=== PATIENT | male | born 1980 | race Caucasian/White ===

== ENCOUNTER 2016-08-26 02:11 | Inpatient (IN) | payer OTHER ==
[2016-08-26] VITALS (12 sets, daily range): BP systolic 86–146; BP diastolic 54–84
[~2016-08-26] VITALS: Ht 182.9 cm; Wt 96.5 kg
[~2016-08-26 02:11] MED LIST: ADVIL PM1 TABLET PO; APRESOLINE20 MG/ML IV; APRESOLINE50 MG PO; AUGMENTIN875 MG PO; AVELOX400 MG PO; Aspirin E.C. PO; BUMEX1 MG PO; Bentyl PO; CIPRO500 MG PO; CLEOCIN300 MG PO; CLONIDINE HCL0.1 MG PO; CYMBALTA20 MG PO; CYMBALTA60 MG PO; Cymbalta PO; DIFLUCAN100 MG PO; DILAUDID1 MG/ML IV; DIOVAN HCT 31 TABLET PO; EFFEXOR XR75 MG PO; EFFEXOR75 MG PO; ERGOCALCIF50000 UNIT PO; FLAGYL500 MG PO; HEPARIN SO5000 UNITS SC; HUMULIN 70100 UNIT/1 SC; Humalog SQ; INSULIN; INSULIN NOVOLOG; KEFLEX500 MG PO; Keflex PO; LEVAQUIN500 MG PO; LOSARTAN-HCTZ1 EAC1 PO; Levaquin PO; MAG-AL PLUS SUS30 ML PO; METFORMIN; METOCLOPRAM5 MG/1 M1 IV; NEXIUM40 MG PO; NOVOLIN,HU100 UNITS/ SC; NOVOLOG MI100 UNIT/3 SQ; NOVOLOG MI100 UNIT/4 SC; NOVOLOG MI100 UNIT/M PO; NOVOLOG PE100 UNITS/ SC; NovoLIN,Humulin 70/3 SC; OMEPRAZOLE20 M2 PO; OMEPRAZOLE20 MG PO; ONDANSETRON4 MG/2 ML IV; OXYCODONE HCL10 MG PO; OXYCODONE HCL15 MG PO; OXYCODONE HCL5 MG PO; PANTOPRAZOLE SO40 MG PO; PERCOCET 10-321 EACH PO; PERCOCET 10/1 TABLET; PERCOCET 5/31 TABLET PO; PRAVASTATIN SOD20 MG PO; PRILOSEC20 MG PO; PRISTIQ50 MG PO; PROTONIX40 MG PO; Phenergan PO; SARAFEM20 MG PO; SMZ PO; TORSEMIDE100 MG PO; TYLENOL REGULA325 MG PO; Tylenol PR; ULTRAM50 MG PO; VALSARTAN-HCTZ1 EAC4 PO; VENLAFAXINE HCL75 MG PO; ZOFRAN4 MG PO; oxyCODONE PO
[2016-08-26 03:09] LABS: CARBON DIOXIDE (BICARBONATE) 27.1 MEQ/L (20-31); MCH 28.9 PG (29.0-34.0); MCHC 31.9 G/DL (30.0-36.0); MCV 90.6 FL (86-99); MEAN PLAT.VOLUME 10.8 uM^3 (9.0-12.4); PLATELET COUNT 272 K/uL (156-360); RBC DIS.WIDTH-SD 42.4 % (39-53); RED BLOOD COUNT 2.98 M/uL (4.00-5.50); WHITE BLOOD COUNT 8.5 K/uL (4.1-10.2)
[2016-08-26 03:20] LABS: CHLORIDE 87 mEq/L (99-109); POTASSIUM 3.8 mEq/L (3.7-5.4); SODIUM 120 mEq/L (136-147)
[2016-08-26 03:23] LABS: ANION GAP 11 MEQ/L (2-14)
[2016-08-26 03:24] LABS: TOTAL BILIRUBIN 0.2 mg/dL (0.0-1.0)
[2016-08-26 03:25] LABS: ALKALINE PHOSPHATASE 273 IU/L (3-129)
[2016-08-26 03:26] LABS: GFR ESTIMATE (CALCULATED) 25 mL/min/
[2016-08-26 03:27] LABS: UREA NITROGEN (BUN) 24 mg/dL (9-23)
[2016-08-26 03:36] LABS: GLUCOSE 986 mg/dL (70-99)
[2016-08-26 03:43] LABS: LIPASE < 1 U/L (1.0-51.0)
[2016-08-26 05:09] LABS: ADD MIUA? YES; BILIRUBIN NEGATIVE; BLOOD SMALL; COLOR COLORLESS ((YELLOW)); GLUCOSE (STRIP) >=500; KETONES NEGATIVE; LEUKOCYTES NEGATIVE; NITRITE NEGATIVE; PROTEIN (STRIP) 30; SPECIFIC GRAVITY 1.013 (1.000-1.030); UROBILINOGEN 0.2 MG/DL (0.2-1.0)
[2016-08-26 05:11] LABS: BACTERIA NONE SEEN /HPF; EPITHELIAL CELLS NONE SEEN /HPF; MUCUS NONE SEEN /LPF; RED BLOOD CELLS 0-5 /HPF (0-5); UCUL ADDED? NO; WHITE BLOOD CELLS 0-5 /HPF (0-5)
[2016-08-26 05:20] LABS: AMPHETAMINE NEGATIVE (500 ng/mL); BARBITURATES NEGATIVE (200 ng/mL); BENZODIAZEPINES NEGATIVE (150 ng/mL); COCAINE NEGATIVE (150 ng/mL); INTERNAL CONTROLS VALID? YES; METHADONE NEGATIVE (200 ng/mL); METHAMPHETAMINE NEGATIVE (500 ng/mL); OPIATES (MORPHINE) NEGATIVE (100 ng/mL); OXYCODONE NEGATIVE (100 ng/mL); PHENCYCLIDINE NEGATIVE (25 ng/mL); PROPOXYPHENE NEGATIVE (300 ng/mL); THC CANNABINOIDS PRESUMPTIVE POSITIVE (50 ng/mL); TRICYCLIC ANTIDEPRESSANTS NEGATIVE (300 ng/mL)
[2016-08-26 05:21] LABS: ADD MEDTOX COMMENT Y
[2016-08-26 07:01] LABS: POINT-OF-CARE METER ID UU14100415
[2016-08-26 07:06] LABS: Estimated Average Glucose 418 mg/dL (70-123)
[2016-08-26 07:12] LABS: HEMOGLOBIN A1c (GLYCOHEMOGLOB) 16.2 % HGB (Below 5.7)
[2016-08-26 07:31] LABS: POINT-OF-CARE METER ID UU14100415
[2016-08-26 07:31] LABS: POINT-OF-CARE METER ID UU14100415
[2016-08-26 07:39] LABS: POINT-OF-CARE METER ID UU14100415
[2016-08-26 08:02] LABS: POINT-OF-CARE METER ID UU14100415
[2016-08-26 09:07] LABS: ANION GAP 10 MEQ/L (2-14); CHLORIDE 96 MEQ/L (99-109); POTASSIUM 3.1 MEQ/L (3.7-5.4); SAMPLE HEMOLYSIS CHECK 0; SAMPLE ICTERIC CHECK 0; SAMPLE LIPEMIA CHECK 0
[2016-08-26 09:07] LABS: POINT-OF-CARE METER ID UU14100415
[2016-08-26 09:13] LABS: UREA NITROGEN (BUN) 24 mg/dL (9-23)
[2016-08-26 09:22] LABS: GFR ESTIMATE (CALCULATED) 36 mL/min/; GLUCOSE 152 mg/dL (70-99); SODIUM 131 MEQ/L (136-147)
[2016-08-26 10:07] LABS: POINT-OF-CARE METER ID UU14100415
[2016-08-26 11:10] LABS: POINT-OF-CARE METER ID UU14100415
[2016-08-26] MEDS ORDERED: BACTRIM,SEPT1 TABLET PO (12:06)
[2016-08-26 12:49] LABS: POTASSIUM 3.5 mEq/L (3.7-5.4); SODIUM 130 mEq/L (136-147)
[2016-08-26 12:50] LABS: CHLORIDE 99 mEq/L (99-109)
[2016-08-26 12:51] LABS: GLUCOSE 150 mg/dL (70-99)
[2016-08-26 12:53] LABS: ANION GAP 8 MEQ/L (2-14)
[2016-08-26 12:55] LABS: GFR ESTIMATE (CALCULATED) 36 mL/min/
[2016-08-26 12:56] LABS: UREA NITROGEN (BUN) 25 mg/dL (9-23)
[2016-08-26 12:59] LABS: POINT-OF-CARE METER ID UU14100415
[2016-08-26 13:12] LABS: HIV INDEX 0.11; HIV-1/2 AB/AG COMBO Nonreactive
[2016-08-26 15:07] LABS: METH RESISTANT S AUREUS PCR NEGATIVE (NEGATIVE)
[2016-08-26 15:29] LABS: PROBE CHECK PASS; SPECIMEN PROCESSING CONTROL PASS
[2016-08-26 16:06] LABS: POINT-OF-CARE METER ID UU13113731
[2016-08-26 16:22] LABS: ANION GAP 8 MEQ/L (2-14); CHLORIDE 97 MEQ/L (99-109); GFR ESTIMATE (CALCULATED) 40 mL/min/; GLUCOSE 222 mg/dL (70-99); POTASSIUM 3.4 MEQ/L (3.7-5.4); SAMPLE HEMOLYSIS CHECK 0; SAMPLE ICTERIC CHECK 0; SAMPLE LIPEMIA CHECK 0; SODIUM 129 MEQ/L (136-147); UREA NITROGEN (BUN) 24 mg/dL (9-23)
[2016-08-26 20:32] LABS: ANION GAP 7 MEQ/L (2-14); CHLORIDE 97 MEQ/L (99-109); POTASSIUM 3.9 MEQ/L (3.7-5.4); SAMPLE HEMOLYSIS CHECK 0; SAMPLE ICTERIC CHECK 0; SAMPLE LIPEMIA CHECK 0; SODIUM 129 MEQ/L (136-147)
[2016-08-26 20:38] LABS: GFR ESTIMATE (CALCULATED) 40 mL/min/; GLUCOSE 273 mg/dL (70-99); UREA NITROGEN (BUN) 25 mg/dL (9-23)
[2016-08-26 22:39] LABS: POINT-OF-CARE METER ID UU13113731
[2016-08-27] VITALS (18 sets, daily range): BP systolic 100–129; BP diastolic 56–82
[2016-08-27 06:18] LABS: ANION GAP 9 MEQ/L (2-14); CHLORIDE 101 MEQ/L (99-109); GFR ESTIMATE (CALCULATED) 40 mL/min/; GLUCOSE 187 mg/dL (70-99); POTASSIUM 3.9 MEQ/L (3.7-5.4); SAMPLE HEMOLYSIS CHECK 0; SAMPLE ICTERIC CHECK 0; SAMPLE LIPEMIA CHECK 0; SODIUM 132 MEQ/L (136-147); UREA NITROGEN (BUN) 23 mg/dL (9-23)
[2016-08-27 06:23] LABS: HEMATOCRIT 24.3 % (38.0-50.0); MCH 29.1 PG (29.0-34.0); MCHC 34.2 G/DL (30.0-36.0); MEAN PLAT.VOLUME 10.7 uM^3 (9.0-12.4); PLATELET COUNT 258 K/uL (156-360); RBC DIS.WIDTH-SD 40.4 % (39-53); RED BLOOD COUNT 2.85 M/uL (4.00-5.50)
[2016-08-27 06:27] LABS: MCV 85.3 FL (86-99)
[2016-08-27 06:28] LABS: POINT-OF-CARE METER ID UU14149397
[2016-08-27 11:35] LABS: POINT-OF-CARE METER ID UU14149397
[2016-08-27 16:39] LABS: POINT-OF-CARE METER ID UU14188577
[2016-08-27 21:24] LABS: POINT-OF-CARE METER ID UU14149397
[2016-08-28] VITALS (7 sets, daily range): BP systolic 110–170; BP diastolic 60–91
[2016-08-28 06:24] LABS: ALKALINE PHOSPHATASE 533 IU/L (3-129); ANION GAP 8 MEQ/L (2-14); CHLORIDE 103 MEQ/L (99-109); GFR ESTIMATE (CALCULATED) 43 mL/min/; GLUCOSE 147 mg/dL (70-99); POTASSIUM 4.3 MEQ/L (3.7-5.4); SAMPLE HEMOLYSIS CHECK 0; SAMPLE ICTERIC CHECK 0; SAMPLE LIPEMIA CHECK 0; SODIUM 137 MEQ/L (136-147); UREA NITROGEN (BUN) 25 mg/dL (9-23)
[2016-08-28 06:26] LABS: HEMATOCRIT 30.8 % (38.0-50.0); MCH 29.5 PG (29.0-34.0); MCHC 34.7 G/DL (30.0-36.0); MCV 84.8 FL (86-99); MEAN PLAT.VOLUME 10.5 uM^3 (9.0-12.4); PLATELET COUNT 268 K/uL (156-360); RBC DIS.WIDTH-CV 13.6 % (11.8-14.6); RBC DIS.WIDTH-SD 42.5 % (39-53)
[2016-08-28 06:46] LABS: RED BLOOD COUNT 3.63 M/uL (4.00-5.50)
[2016-08-28 07:41] LABS: POINT-OF-CARE METER ID UU14149397
[2016-08-28 08:35] LABS: AMYLASE 24 IU/L (1-118)
[2016-08-28 08:56] LABS: LIPASE < 3.0 U/L (1.0-51.0)
[2016-08-29 04:30] VITALS: BP 114/66
[2016-08-29 05:52] LABS: HEMATOCRIT 32.6 % (38.0-50.0); MCH 29.2 PG (29.0-34.0); MCHC 33.7 G/DL (30.0-36.0); MCV 86.5 FL (86-99); MEAN PLAT.VOLUME 10.2 uM^3 (9.0-12.4); PLATELET COUNT 301 K/uL (156-360); RBC DIS.WIDTH-CV 13.6 % (11.8-14.6); RBC DIS.WIDTH-SD 42.9 % (39-53); RED BLOOD COUNT 3.77 M/uL (4.00-5.50)
[2016-08-29 05:53] LABS: WHITE BLOOD COUNT 8.8 K/uL (4.1-10.2)
[2016-08-29 06:18] LABS: ALKALINE PHOSPHATASE 575 IU/L (3-129); ANION GAP 9 MEQ/L (2-14); CHLORIDE 98 MEQ/L (99-109); GFR ESTIMATE (CALCULATED) 46 mL/min/; GLUCOSE 195 mg/dL (70-99); POTASSIUM 4.2 MEQ/L (3.7-5.4); SAMPLE HEMOLYSIS CHECK 0; SAMPLE ICTERIC CHECK 0; SAMPLE LIPEMIA CHECK 0; SODIUM 136 MEQ/L (136-147); TOTAL BILIRUBIN 0.9 MG/DL (0.0-1.0); UREA NITROGEN (BUN) 24 mg/dL (9-23)
[2016-08-29 06:31] LABS: POINT-OF-CARE METER ID UU14149397
[2016-08-29 09:32] LABS: LIPASE < 3.0 U/L (1.0-51.0)
[2016-08-29 09:37] VITALS: BP 130/78
[2016-08-29 09:38] LABS: AMYLASE 42 IU/L (1-118)
[2016-08-29 12:24] VITALS: BP 115/68
[2016-08-29 16:06] VITALS: BP 121/74
[2016-08-29 19:46] VITALS: BP 124/80
[2016-08-29 23:52] VITALS: BP 117/72
[2016-08-30 03:54] VITALS: BP 127/82
[2016-08-30 06:56] LABS: POINT-OF-CARE METER ID UU14188577
[2016-08-30 07:41] VITALS: BP 103/57
[2016-08-30 11:34] VITALS: BP 113/63
[2016-08-30 15:51] VITALS: BP 125/65
[2016-08-30 19:33] VITALS: BP 134/85
[2016-08-31] VITALS (7 sets, daily range): BP systolic 104–119; BP diastolic 59–74
[2016-08-31 06:37] LABS: POINT-OF-CARE METER ID UU14188577
[2016-08-31 11:54] LABS: POINT-OF-CARE METER ID UU14149397
[2016-09-01 03:59] VITALS: BP 102/62
[2016-09-01 06:11] LABS: POINT-OF-CARE METER ID UU14149397; POINT-OF-CARE USER ID STWHLR41
[2016-09-01 08:00] VITALS: BP 118/60
[2016-09-01] MEDS ORDERED: VALSARTAN160 MG PO (10:51)
[2016-09-01 11:47] VITALS: BP 119/78
[2016-09-01 12:02] LABS: POINT-OF-CARE METER ID UU14188577
== END 2016-09-01 13:40 | disposition home or self-care (01) | DRG 638 ==
LOC: EME → EDBD 02:11 → 3EAST 11:44 → 4WEST 11:44 → EDOF 11:44 → 4WEST 12:30 → 3EAST 08-27 02:12
PROVIDERS: Emergency Medicine; Internal Medicine; Internal Medicine Critical Care Medicine
DX: E10.10 Type 1 diabetes mellitus with ketoacidosis without coma (principal); K86.1 Other chronic pancreatitis; K21.9 Gastro-esophageal reflux disease without esophagitis; N18.3 Chronic kidney disease, stage 3 (moderate); F32.9 Major depressive disorder, single episode, unspecified; I12.9 Hypertensive chronic kidney disease with stage 1 through stage 4 chronic kidney disease, or unspecified chronic kidney disease; G89.29 Other chronic pain; F17.200 Nicotine dependence, unspecified, uncomplicated; Z79.4 Long term (current) use of insulin; W19.XXXA Unspecified fall, initial encounter; R20.2 Paresthesia of skin; R26.2 Difficulty in walking, not elsewhere classified; D32.9 Benign neoplasm of meninges, unspecified; D63.1 Anemia in chronic kidney disease; E10.40 Type 1 diabetes mellitus with diabetic neuropathy, unspecified; R79.89 Other specified abnormal findings of blood chemistry; E10.22 Type 1 diabetes mellitus with diabetic chronic kidney disease; Y99.9 Unspecified external cause status
CPT/HCPCS: 70450; 71020; 72125; 72131; 73560; 74150; 80048; 80048 91; 80053; 81003; 82010; 82150; 82803; 82948; 83036; 83690; 83930; 84100; 84999; 85027; 86703; 86850; 86900; 86901; 86920; 87641; 99281; 99285; J1815; J1940; J2405; J7030; J7050; P9016

== ENCOUNTER 2016-11-08 02:49 | Inpatient (IN) | payer OTHER ==
[~2016-11-08] VITALS: Ht 193 cm; Wt 110.0 kg
[2016-11-08] VITALS (10 sets, daily range): BP systolic 11–122; BP diastolic 68–85
[~2016-11-08 02:49] MED LIST changes: +BACTRIM,SEPT1 TABLET PO; +VALSARTAN160 MG PO
[2016-11-08 03:47] LABS: HEMATOCRIT 24.4 % (38.0-50.0); MCH 30.1 PG (29.0-34.0); MCHC 34.4 G/DL (30.0-36.0); MCV 87.5 FL (86-99); MEAN PLAT.VOLUME 9.6 uM^3 (9.0-12.4); PLATELET COUNT 202 K/uL (156-360); RBC DIS.WIDTH-CV 13.7 % (11.8-14.6); RBC DIS.WIDTH-SD 44.2 % (39-53); RED BLOOD COUNT 2.79 M/uL (4.00-5.50); WHITE BLOOD COUNT 13.6 K/uL (4.1-10.2)
[2016-11-08 03:49] LABS: CARBON DIOXIDE (BICARBONATE) 20.9 MEQ/L (20-31)
[2016-11-08 03:58] LABS: CHLORIDE 102 mEq/L (99-109); POTASSIUM 3.7 mEq/L (3.7-5.4); SODIUM 130 mEq/L (136-147)
[2016-11-08 04:00] LABS: GLUCOSE 301 mg/dL (70-99)
[2016-11-08 04:01] LABS: ANION GAP 9 MEQ/L (2-14)
[2016-11-08 04:02] LABS: TOTAL BILIRUBIN 0.7 mg/dL (0.0-1.0)
[2016-11-08 04:04] LABS: ALKALINE PHOSPHATASE 208 IU/L (3-129); GFR ESTIMATE (CALCULATED) 36 mL/min/
[2016-11-08 04:04] LABS: ADD MIUA? YES; BILIRUBIN NEGATIVE; BLOOD LARGE; COLOR AMBER ((YELLOW)); GLUCOSE (STRIP) 50; KETONES NEGATIVE; LEUKOCYTES LARGE; NITRITE NEGATIVE; PROTEIN (STRIP) >=500; SPECIFIC GRAVITY 1.013 (1.000-1.030); UROBILINOGEN 0.2 MG/DL (0.2-1.0)
[2016-11-08 04:05] LABS: UREA NITROGEN (BUN) 24 mg/dL (9-23)
[2016-11-08 04:13] LABS: LIPASE < 1.0 U/L (1.0-51.0)
[2016-11-08 04:41] LABS: BACTERIA 3+ /HPF; EPITHELIAL CELLS 2+ /HPF; MUCUS 2+ /LPF; RED BLOOD CELLS TNTC /HPF (0-5); UCUL ADDED? YES; WHITE BLOOD CELLS TNTC /HPF (0-5)
[2016-11-08 04:42] LABS: HYALINE CASTS 0-5 /LPF
[2016-11-08 07:54] LABS: POINT-OF-CARE METER ID UU14149397
[2016-11-08 22:04] LABS: POINT-OF-CARE METER ID UU14149397
[2016-11-09] VITALS (15 sets, daily range): BP systolic 106–132; BP diastolic 69–92
[2016-11-09 06:15] LABS: HEMATOCRIT 23.3 % (38.0-50.0); MCH 31.1 PG (29.0-34.0); MCHC 35.2 G/DL (30.0-36.0); MCV 88.3 FL (86-99); MEAN PLAT.VOLUME 10.6 uM^3 (9.0-12.4); PLATELET COUNT 158 K/uL (156-360); RBC DIS.WIDTH-CV 14.1 % (11.8-14.6); RBC DIS.WIDTH-SD 45.9 % (39-53); RED BLOOD COUNT 2.64 M/uL (4.00-5.50); WHITE BLOOD COUNT 11.6 K/uL (4.1-10.2)
[2016-11-09 06:38] LABS: ALKALINE PHOSPHATASE 184 IU/L (3-129); ANION GAP 10 MEQ/L (2-14); CHLORIDE 101 MEQ/L (99-109); GFR ESTIMATE (CALCULATED) 29 mL/min/; POTASSIUM 4.1 MEQ/L (3.7-5.4); SAMPLE HEMOLYSIS CHECK 0; SAMPLE ICTERIC CHECK 0; SAMPLE LIPEMIA CHECK 0; SODIUM 129 MEQ/L (136-147); TOTAL BILIRUBIN 0.5 MG/DL (0.0-1.0)
[2016-11-09 06:51] LABS: GLUCOSE 134 mg/dL (70-99); UREA NITROGEN (BUN) 37 mg/dL (9-23)
[2016-11-09 07:08] LABS: POINT-OF-CARE METER ID UU14149397
[2016-11-09] MEDS ORDERED: NOVOLOG MI100 UNIT/4 SC ×2 (14:10→14:11)
[2016-11-09] MEDS ORDERED: LYRICA150 MG PO (14:11)
[2016-11-09] MEDS ORDERED: DIOVAN HCT 31 TABLET PO (14:12)
[2016-11-09 16:30] LABS: POINT-OF-CARE METER ID UU14149397
[2016-11-09 21:23] LABS: POINT-OF-CARE METER ID UU14149397
[2016-11-10 04:39] VITALS: BP 128/77
[2016-11-10 06:48] LABS: HEMATOCRIT 27.6 % (38.0-50.0); MCH 30.1 PG (29.0-34.0); MCHC 34.8 G/DL (30.0-36.0); MCV 86.5 FL (86-99); MEAN PLAT.VOLUME 10.5 uM^3 (9.0-12.4); PLATELET COUNT 169 K/uL (156-360); RBC DIS.WIDTH-CV 15.2 % (11.8-14.6); RBC DIS.WIDTH-SD 48.2 % (39-53); RED BLOOD COUNT 3.19 M/uL (4.00-5.50); WHITE BLOOD COUNT 6.1 K/uL (4.1-10.2)
[2016-11-10 07:32] LABS: ANION GAP 9 MEQ/L (2-14); CHLORIDE 104 MEQ/L (99-109); GFR ESTIMATE (CALCULATED) 31 mL/min/; POTASSIUM 4.3 MEQ/L (3.7-5.4); SAMPLE HEMOLYSIS CHECK 0; SAMPLE ICTERIC CHECK 0; SAMPLE LIPEMIA CHECK 0; SODIUM 132 MEQ/L (136-147); UREA NITROGEN (BUN) 44 mg/dL (9-23)
[2016-11-10 07:33] LABS: ALKALINE PHOSPHATASE 316 IU/L (3-129); GLUCOSE 84 mg/dL (70-99); TOTAL BILIRUBIN 0.9 MG/DL (0.0-1.0)
[2016-11-10 08:12] VITALS: BP 126/72
[2016-11-10 08:20] LABS: ANION GAP 10 MEQ/L (2-14); CHLORIDE 105 MEQ/L (99-109); FERRITIN 271 NG/ML (22-322); GFR ESTIMATE (CALCULATED) 31 mL/min/; IRON 94 MCG/DL (35-150); POTASSIUM 4.3 MEQ/L (3.7-5.4); SAMPLE HEMOLYSIS CHECK 0; SAMPLE ICTERIC CHECK 0; SAMPLE LIPEMIA CHECK 0; SODIUM 133 MEQ/L (136-147); UREA NITROGEN (BUN) 44 mg/dL (9-23)
[2016-11-10 08:22] LABS: GLUCOSE 85 mg/dL (70-99)
[2016-11-10 11:40] VITALS: BP 118/81
[2016-11-10 16:15] VITALS: BP 125/84
[2016-11-10 16:47] LABS: POINT-OF-CARE METER ID UU14149397
[2016-11-10 19:53] VITALS: BP 130/77
[2016-11-10 22:08] LABS: POINT-OF-CARE METER ID UU14149397
[2016-11-10 23:54] VITALS: BP 136/79
[2016-11-11 03:56] VITALS: BP 138/79
[2016-11-11 07:00] LABS: EOSINOPHIL (%) 1.8 % (0-5); EOSINOPHIL COUNT 0.1 K/uL (0-0.3); HEMATOCRIT 29.4 % (38.0-50.0); IMMATURE GRANULOCYTE (%) 0.4 % (0.0-0.7); INSTRUMENT ABS NEUTROPHIL CT 3.6 K/uL; LYMPHOCYTE COUNT 1.4 K/uL (1.0-2.8); MCH 29.7 PG (29.0-34.0); MCHC 33.7 G/DL (30.0-36.0); MCV 88.3 FL (86-99); MEAN PLAT.VOLUME 10.5 uM^3 (9.0-12.4); MONOCYTE COUNT 0.4 K/uL (0-0.8); NEUTROPHIL (%) 65.4 % (45-76); NEUTROPHIL COUNT 3.6 K/uL (1.8-6.4); PLATELET COUNT 175 K/uL (156-360); RBC DIS.WIDTH-CV 15.4 % (11.8-14.6); RBC DIS.WIDTH-SD 49.8 % (39-53); RED BLOOD COUNT 3.33 M/uL (4.00-5.50); WHITE BLOOD COUNT 5.4 K/uL (4.1-10.2)
[2016-11-11 07:22] LABS: ANION GAP 10 MEQ/L (2-14); CHLORIDE 105 MEQ/L (99-109); GFR ESTIMATE (CALCULATED) 33 mL/min/; POTASSIUM 4.2 MEQ/L (3.7-5.4); SAMPLE HEMOLYSIS CHECK 0; SAMPLE ICTERIC CHECK 0; SAMPLE LIPEMIA CHECK 0; SODIUM 132 MEQ/L (136-147); UREA NITROGEN (BUN) 38 mg/dL (9-23)
[2016-11-11 07:24] LABS: GLUCOSE 195 mg/dL (70-99)
[2016-11-11 07:32] VITALS: BP 124/84
[2016-11-11 08:48] LABS: ALKALINE PHOSPHATASE 402 IU/L (3-129); TOTAL BILIRUBIN 0.7 MG/DL (0.0-1.0)
[2016-11-11 11:16] LABS: POINT-OF-CARE METER ID UU14149397
[2016-11-11 11:40] VITALS: BP 123/86
[2016-11-11] MEDS ORDERED: LINEZOLID600 MG PO (14:31)
[2016-11-11] MEDS ORDERED: DUONEB 2.5-0.5 M3 ML AEROSOL (14:32)
== END 2016-11-11 17:19 | disposition home or self-care (01) | DRG 871 ==
LOC: EME → EDBD 02:49 → EME 02:49 → 3EAST 04:51 → EDOF 04:51 → 3EAST 07:07
PROVIDERS: Emergency Medicine; Internal Medicine; Internal Medicine Nephrology
PROC: 30233N1 Transfusion of Nonautologous Red Blood Cells into Peripheral Vein, Percutaneous Approach (ICD-10-PCS; principal; 2016-11-08)
DX: A41.9 Sepsis, unspecified organism (principal); J18.9 Pneumonia, unspecified organism; N39.0 Urinary tract infection, site not specified; N17.9 Acute kidney failure, unspecified; E10.65 Type 1 diabetes mellitus with hyperglycemia; F11.20 Opioid dependence, uncomplicated; N18.4 Chronic kidney disease, stage 4 (severe); E10.22 Type 1 diabetes mellitus with diabetic chronic kidney disease; D63.1 Anemia in chronic kidney disease; F70 Mild intellectual disabilities; F32.9 Major depressive disorder, single episode, unspecified; D32.9 Benign neoplasm of meninges, unspecified; E55.9 Vitamin D deficiency, unspecified; I12.9 Hypertensive chronic kidney disease with stage 1 through stage 4 chronic kidney disease, or unspecified chronic kidney disease; G89.4 Chronic pain syndrome; K86.1 Other chronic pancreatitis; E10.319 Type 1 diabetes mellitus with unspecified diabetic retinopathy without macular edema; E10.40 Type 1 diabetes mellitus with diabetic neuropathy, unspecified; E10.21 Type 1 diabetes mellitus with diabetic nephropathy; K21.9 Gastro-esophageal reflux disease without esophagitis; Z90.49 Acquired absence of other specified parts of digestive tract; Z79.4 Long term (current) use of insulin; Z87.891 Personal history of nicotine dependence
CPT/HCPCS: 70450; 71010; 71020; 80053; 80069; 81003; 82010; 82272; 82306; 82570; 82607; 82728; 82746; 82803; 82948; 83540; 83605; 83690; 84156; 84466; 84550; 85025; 85027; 86900; 86901; 86920; 87040; 87077; 87086; 87186; 87801; 94640; 94640 76; 94760; 99202; 99281; 99285; J0456; J0744; J1650; J1815; J1956; J2405; J7030; P9016

== ENCOUNTER 2016-11-17 06:26 | Emergency (ER) | payer OTHER ==
[~2016-11-17] VITALS: Ht 182.9 cm; Wt 97.0 kg
[~2016-11-17 06:26] MED LIST changes: +DUONEB 2.5-0.5 M3 ML AEROSOL; +LINEZOLID600 MG PO; +LYRICA150 MG PO
[2016-11-17 07:12] LABS: POINT-OF-CARE METER ID UU13113702
[2016-11-17 08:02] LABS: ADD MIUA? YES; BILIRUBIN NEGATIVE; BLOOD MODERATE; COLOR STRAW ((YELLOW)); GLUCOSE (STRIP) >=500; KETONES NEGATIVE; LEUKOCYTES SMALL; NITRITE NEGATIVE; PROTEIN (STRIP) 100; SPECIFIC GRAVITY 1.007 (1.000-1.030); UROBILINOGEN 0.2 MG/DL (0.2-1.0)
[2016-11-17 08:10] LABS: BACTERIA NONE SEEN /HPF; BUDDING YEAST 3+; EPITHELIAL CELLS RARE /HPF; HYALINE CASTS 0-5 /LPF; MUCUS TRACE /LPF; UCUL ADDED? NO
[2016-11-17 08:17] LABS: HEMATOCRIT 32.7 % (38.0-50.0); MCH 29.2 PG (29.0-34.0); MCHC 32.7 G/DL (30.0-36.0); MCV 89.3 FL (86-99); MEAN PLAT.VOLUME 9.4 uM^3 (9.0-12.4); RBC DIS.WIDTH-CV 14.7 % (11.8-14.6); RBC DIS.WIDTH-SD 47.8 % (39-53); RED BLOOD COUNT 3.66 M/uL (4.00-5.50); WHITE BLOOD COUNT 12.3 K/uL (4.1-10.2)
[2016-11-17 08:20] LABS: PLATELET COUNT 275 K/uL (156-360)
[2016-11-17 08:22] LABS: CHLORIDE 108 mEq/L (99-109); POTASSIUM 3.7 mEq/L (3.7-5.4); SODIUM 131 mEq/L (136-147)
[2016-11-17 08:23] LABS: GLUCOSE 280 mg/dL (70-99)
[2016-11-17 08:25] LABS: ANION GAP 5 MEQ/L (2-14)
[2016-11-17 08:27] LABS: GFR ESTIMATE (CALCULATED) > 59 mL/min/
[2016-11-17 08:28] LABS: UREA NITROGEN (BUN) 9 mg/dL (9-23)
[2016-11-17 09:34] LABS: ABS NEUTROPHIL COUNT 8.8; BAND NEUTROPHILS 0.9 % (0-8.0); BASOPHILS 1.8 %; BURR CELLS 1+; EOSINOPHIL ABS CT 0; INSTRUMENT ABS NEUTROPHIL CT 8.5 K/uL; LYMPHOCYTES 21.9 % (15.0-45.0); OVALOCYTES 1+; PLAT.SUFFICIENCY ADEQUATE; POIKILOCYTOSIS 1+
[2016-11-17 09:50] VITALS: BP 132/83
== END 2016-11-17 10:10 | disposition home or self-care (01) ==
LOC: EME → EDBD 06:26 → EME 10:10
PROVIDERS: Personal Emergency Response Attendant
DX: M54.9 Dorsalgia, unspecified (principal); E86.0 Dehydration; I12.9 Hypertensive chronic kidney disease with stage 1 through stage 4 chronic kidney disease, or unspecified chronic kidney disease; N18.9 Chronic kidney disease, unspecified; E11.65 Type 2 diabetes mellitus with hyperglycemia; K21.9 Gastro-esophageal reflux disease without esophagitis; Z87.440 Personal history of urinary (tract) infections; Z79.4 Long term (current) use of insulin; Z88.0 Allergy status to penicillin; Z88.2 Allergy status to sulfonamides; Z87.891 Personal history of nicotine dependence
CPT/HCPCS: 71020; 74176; 80048; 81003; 82948; 85025; 99281; 99284; J3010; J7030

== ENCOUNTER 2016-12-02 11:27 | Inpatient (IN) | payer OTHER ==
[~2016-12-02] VITALS: Ht 182.9 cm; Wt 109.2 kg
[2016-12-02 12:39] LABS: BASOPHIL COUNT 0.1 K/uL (0-0.1); EOSINOPHIL (%) 3.8 % (0-5); EOSINOPHIL COUNT 0.4 K/uL (0-0.3); HEMATOCRIT 27.7 % (38.0-50.0); IMMATURE GRANULOCYTE (%) 0.3 % (0.0-0.7); INSTRUMENT ABS NEUTROPHIL CT 7.2 K/uL; LYMPHOCYTE COUNT 2.1 K/uL (1.0-2.8); MCH 29.3 PG (29.0-34.0); MCHC 33.9 G/DL (30.0-36.0); MCV 86.3 FL (86-99); MEAN PLAT.VOLUME 9.6 uM^3 (9.0-12.4); MONOCYTE COUNT 0.7 K/uL (0-0.8); NEUTROPHIL (%) 68.5 % (45-76); NEUTROPHIL COUNT 7.2 K/uL (1.8-6.4); PLATELET COUNT 256 K/uL (156-360); RBC DIS.WIDTH-CV 14.3 % (11.8-14.6); RBC DIS.WIDTH-SD 44.6 % (39-53); RED BLOOD COUNT 3.21 M/uL (4.00-5.50); WHITE BLOOD COUNT 10.5 K/uL (4.1-10.2)
[2016-12-02 12:50] LABS: CHLORIDE 106 mEq/L (99-109); POTASSIUM 4.5 mEq/L (3.7-5.4); SODIUM 135 mEq/L (136-147)
[2016-12-02 12:51] LABS: GLUCOSE 187 mg/dL (70-99)
[2016-12-02 12:53] LABS: ANION GAP 7 MEQ/L (2-14)
[2016-12-02 12:55] LABS: GFR ESTIMATE (CALCULATED) > 59 mL/min/
[2016-12-02 12:56] LABS: UREA NITROGEN (BUN) 9 mg/dL (9-23)
[2016-12-02 13:20] LABS: ADD MIUA? YES; BILIRUBIN NEGATIVE; BLOOD MODERATE; COLOR YELLOW ((YELLOW)); GLUCOSE (STRIP) 50; KETONES NEGATIVE; LEUKOCYTES LARGE; NITRITE NEGATIVE; PROTEIN (STRIP) >=500; SPECIFIC GRAVITY 1.009 (1.000-1.030); UROBILINOGEN 0.2 MG/DL (0.2-1.0)
[2016-12-02 13:25] LABS: BACTERIA 3+ /HPF; BUDDING YEAST 4+; EPITHELIAL CELLS RARE /HPF; HYALINE CASTS 0-5 /LPF; MUCUS TRACE /LPF; RED BLOOD CELLS 40-50 /HPF (0-5); UCUL ADDED? YES; WHITE BLOOD CELLS TNTC /HPF (0-5); WHITE BLOOD CELLS CLUMP FEW /HPF (0-5)
[2016-12-02] MEDS ORDERED: VENLAFAXINE HCL75 MG PO (14:24)
[2016-12-02] MEDS ORDERED: VITAMIN D2000 UNI1 PO (14:25)
[2016-12-02 17:55] VITALS: BP 159/95
[2016-12-02 20:20] VITALS: BP 167/99
[2016-12-02 21:06] LABS: POINT-OF-CARE METER ID UU13113725
[2016-12-02 22:25] VITALS: BP 143/66
[2016-12-03 00:37] LABS: POINT-OF-CARE METER ID UU13113725
[2016-12-03 07:41] VITALS: BP 140/89
[2016-12-03 11:41] LABS: POINT-OF-CARE METER ID UU13113725
[2016-12-03 15:00] VITALS: BP 111/67
[2016-12-03 16:48] LABS: POINT-OF-CARE METER ID UU13113725
[2016-12-03 21:23] LABS: POINT-OF-CARE METER ID UU13113725
[2016-12-04 00:45] VITALS: BP 134/80
[2016-12-04 08:33] VITALS: BP 135/74
[2016-12-04 09:49] LABS: POINT-OF-CARE METER ID UU13113725
[2016-12-04 11:49] LABS: POINT-OF-CARE METER ID UU13113725
[2016-12-04 15:58] VITALS: BP 114/79
[2016-12-04 16:14] LABS: POINT-OF-CARE METER ID UU13113725
[2016-12-04 19:40] VITALS: BP 142/85
[2016-12-05 07:41] LABS: POINT-OF-CARE METER ID UU13113725
[2016-12-05 07:42] VITALS: BP 132/78
[2016-12-05 11:52] LABS: POINT-OF-CARE METER ID UU13113725
[2016-12-05 15:30] VITALS: BP 131/78
[2016-12-05 21:25] LABS: POINT-OF-CARE METER ID UU13113725
[2016-12-06 00:17] VITALS: BP 138/83
[2016-12-06 06:02] LABS: POINT-OF-CARE METER ID UU13113725
[2016-12-06 07:31] VITALS: BP 125/78
[2016-12-06 11:26] LABS: EOSINOPHIL (%) 5.5 % (0-5); EOSINOPHIL COUNT 0.7 K/uL (0-0.3); HEMATOCRIT 31.1 % (38.0-50.0); IMMATURE GRANULOCYTE (%) 0.5 % (0.0-0.7); IMMATURE GRANULOCYTE COUNT 0.1 K/uL; LYMPHOCYTE COUNT 1.7 K/uL (1.0-2.8); MCH 29.9 PG (29.0-34.0); MCHC 33.1 G/DL (30.0-36.0); MCV 90.1 FL (86-99); MEAN PLAT.VOLUME 9.3 uM^3 (9.0-12.4); MONOCYTE (%) 7.3 % (3-12); MONOCYTE COUNT 0.9 K/uL (0-0.8); RBC DIS.WIDTH-CV 15.5 % (11.8-14.6); RBC DIS.WIDTH-SD 50.2 % (39-53); RED BLOOD COUNT 3.45 M/uL (4.00-5.50); WHITE BLOOD COUNT 12.3 K/uL (4.1-10.2)
[2016-12-06 11:27] LABS: PLATELET COUNT 377 K/uL (156-360)
[2016-12-06 11:34] LABS: ANION GAP 8 MEQ/L (2-14); CHLORIDE 101 MEQ/L (99-109); POTASSIUM 5.2 MEQ/L (3.7-5.4); SAMPLE HEMOLYSIS CHECK 0; SAMPLE ICTERIC CHECK 0; SAMPLE LIPEMIA CHECK 0; SODIUM 129 MEQ/L (136-147); TOTAL BILIRUBIN 0.8 MG/DL (0.0-1.0)
[2016-12-06 11:43] LABS: ALKALINE PHOSPHATASE 673 IU/L (3-129); GFR ESTIMATE (CALCULATED) 24 mL/min/; GLUCOSE 75 mg/dL (70-99); UREA NITROGEN (BUN) 36 mg/dL (9-23)
[2016-12-06 15:00] VITALS: BP 141/84
[2016-12-06 17:28] LABS: POINT-OF-CARE METER ID UU13113725
[2016-12-06 23:37] VITALS: BP 142/89
[2016-12-07 05:58] LABS: BASOPHIL COUNT 0.1 K/uL (0-0.1); EOSINOPHIL (%) 5.1 % (0-5); EOSINOPHIL COUNT 0.6 K/uL (0-0.3); HEMATOCRIT 28.7 % (38.0-50.0); IMMATURE GRANULOCYTE (%) 0.5 % (0.0-0.7); IMMATURE GRANULOCYTE COUNT 0.1 K/uL; INSTRUMENT ABS NEUTROPHIL CT 7.7 K/uL; LYMPHOCYTE COUNT 1.5 K/uL (1.0-2.8); MCH 30.4 PG (29.0-34.0); MCHC 33.1 G/DL (30.0-36.0); MEAN PLAT.VOLUME 9.1 uM^3 (9.0-12.4); MONOCYTE (%) 8.9 % (3-12); NEUTROPHIL (%) 71.4 % (45-76); NEUTROPHIL COUNT 7.7 K/uL (1.8-6.4); PLATELET COUNT 327 K/uL (156-360); RBC DIS.WIDTH-CV 15.7 % (11.8-14.6); RBC DIS.WIDTH-SD 51.8 % (39-53); RED BLOOD COUNT 3.12 M/uL (4.00-5.50); WHITE BLOOD COUNT 10.8 K/uL (4.1-10.2)
[2016-12-07 06:09] LABS: POINT-OF-CARE METER ID UU13113725
[2016-12-07 06:23] LABS: ALKALINE PHOSPHATASE 562 IU/L (3-129); ANION GAP 7 MEQ/L (2-14); CHLORIDE 104 MEQ/L (99-109); DIRECT BILIRUBIN 0.1 mg/dL (0.0-0.3); GFR ESTIMATE (CALCULATED) 23 mL/min/; GLUCOSE 90 mg/dL (70-99); POTASSIUM 4.8 MEQ/L (3.7-5.4); SAMPLE HEMOLYSIS CHECK 0; SAMPLE ICTERIC CHECK 0; SAMPLE LIPEMIA CHECK 0; SODIUM 130 MEQ/L (136-147); UREA NITROGEN (BUN) 35 mg/dL (9-23)
[2016-12-07 06:24] LABS: TOTAL BILIRUBIN 0.4 MG/DL (0.0-1.0)
[2016-12-07 07:33] VITALS: BP 133/89
[2016-12-07 11:22] LABS: POINT-OF-CARE METER ID UU13113725
[2016-12-07 13:49] LABS: IRON 65 MCG/DL (35-150)
[2016-12-07 16:27] VITALS: BP 138/91
[2016-12-07 18:42] LABS: GLUCOSE 128 mg/dL (70-99)
[2016-12-07 22:32] LABS: POINT-OF-CARE METER ID UU13113725
[2016-12-07 22:36] LABS: POINT-OF-CARE METER ID UU13113725
[2016-12-07 23:00] VITALS: BP 141/91
[2016-12-08 07:17] LABS: ANION GAP 8 MEQ/L (2-14); CHLORIDE 107 MEQ/L (99-109); GFR ESTIMATE (CALCULATED) 26 mL/min/; GLUCOSE 131 mg/dL (70-99); POTASSIUM 4.9 MEQ/L (3.7-5.4); SAMPLE HEMOLYSIS CHECK 0; SAMPLE ICTERIC CHECK 0; SAMPLE LIPEMIA CHECK 0; SODIUM 133 MEQ/L (136-147); UREA NITROGEN (BUN) 34 mg/dL (9-23)
[2016-12-08 07:18] VITALS: BP 152/104
[2016-12-08 15:15] VITALS: BP 123/79
[2016-12-08 23:25] VITALS: BP 127/83
[2016-12-09 05:51] LABS: POINT-OF-CARE METER ID UU13113725
[2016-12-09 08:16] VITALS: BP 144/86
[2016-12-09 08:25] LABS: BASOPHIL COUNT 0.1 K/uL (0-0.1); EOSINOPHIL (%) 4.8 % (0-5); EOSINOPHIL COUNT 0.4 K/uL (0-0.3); HEMATOCRIT 32.1 % (38.0-50.0); IMMATURE GRANULOCYTE (%) 0.5 % (0.0-0.7); INSTRUMENT ABS NEUTROPHIL CT 5.8 K/uL; LYMPHOCYTE COUNT 1.7 K/uL (1.0-2.8); MCH 30.1 PG (29.0-34.0); MCHC 32.4 G/DL (30.0-36.0); MCV 92.8 FL (86-99); MEAN PLAT.VOLUME 9.1 uM^3 (9.0-12.4); MONOCYTE (%) 7.4 % (3-12); MONOCYTE COUNT 0.6 K/uL (0-0.8); NEUTROPHIL (%) 67.4 % (45-76); NEUTROPHIL COUNT 5.8 K/uL (1.8-6.4); PLATELET COUNT 362 K/uL (156-360); RBC DIS.WIDTH-CV 16.1 % (11.8-14.6); RBC DIS.WIDTH-SD 53.8 % (39-53); RED BLOOD COUNT 3.46 M/uL (4.00-5.50); WHITE BLOOD COUNT 8.6 K/uL (4.1-10.2)
[2016-12-09 08:53] LABS: ALKALINE PHOSPHATASE 519 IU/L (3-129); ANION GAP 9 MEQ/L (2-14); CHLORIDE 107 MEQ/L (99-109); GFR ESTIMATE (CALCULATED) 27 mL/min/; GLUCOSE 118 mg/dL (70-99); POTASSIUM 4.5 MEQ/L (3.7-5.4); SAMPLE HEMOLYSIS CHECK 0; SAMPLE ICTERIC CHECK 0; SAMPLE LIPEMIA CHECK 0; SODIUM 133 MEQ/L (136-147); UREA NITROGEN (BUN) 35 mg/dL (9-23)
[2016-12-09 08:54] LABS: TOTAL BILIRUBIN 0.3 MG/DL (0.0-1.0)
[2016-12-09 11:50] LABS: POINT-OF-CARE METER ID UU13113725
[2016-12-09 14:49] LABS: ADD MIUA? YES; BILIRUBIN NEGATIVE; BLOOD MODERATE; COLOR YELLOW ((YELLOW)); GLUCOSE (STRIP) NEGATIVE; KETONES 5; LEUKOCYTES MODERATE; NITRITE NEGATIVE; PROTEIN (STRIP) 100; SPECIFIC GRAVITY 1.008 (1.000-1.030); UROBILINOGEN 0.2 MG/DL (0.2-1.0)
[2016-12-09 16:21] LABS: EPITHELIAL CELLS 2+ /HPF; MUCUS NONE SEEN /LPF; RED BLOOD CELLS 0-5 /HPF (0-5)
[2016-12-09 16:22] LABS: BACTERIA 1+ /HPF; OTHER BUDDING YEAST
[2016-12-09 16:28] LABS: POINT-OF-CARE METER ID UU13113725
[2016-12-09 16:35] VITALS: BP 124/72
[2016-12-09 23:19] VITALS: BP 124/84
[2016-12-10 06:03] LABS: POINT-OF-CARE METER ID UU13113725
[2016-12-10 07:27] VITALS: BP 129/83
[2016-12-10 09:47] LABS: ANION GAP 9 MEQ/L (2-14); CHLORIDE 108 MEQ/L (99-109); GFR ESTIMATE (CALCULATED) 24 mL/min/; GLUCOSE 175 mg/dL (70-99); POTASSIUM 4.8 MEQ/L (3.7-5.4); SAMPLE HEMOLYSIS CHECK 0; SAMPLE ICTERIC CHECK 0; SAMPLE LIPEMIA CHECK 0; SODIUM 137 MEQ/L (136-147); UREA NITROGEN (BUN) 37 mg/dL (9-23)
[2016-12-10 11:28] LABS: POINT-OF-CARE METER ID UU13113725
[2016-12-10 16:43] VITALS: BP 132/87
[2016-12-10 17:04] LABS: POINT-OF-CARE METER ID UU13113725
[2016-12-10 20:51] LABS: POINT-OF-CARE METER ID UU13113725
[2016-12-10 23:39] VITALS: BP 141/96
[2016-12-11 06:15] LABS: POINT-OF-CARE METER ID UU13113725
[2016-12-11 07:23] LABS: ANION GAP 9 MEQ/L (2-14); CHLORIDE 110 MEQ/L (99-109); GFR ESTIMATE (CALCULATED) 23 mL/min/; GLUCOSE 168 mg/dL (70-99); POTASSIUM 4.8 MEQ/L (3.7-5.4); SAMPLE HEMOLYSIS CHECK 0; SAMPLE ICTERIC CHECK 0; SAMPLE LIPEMIA CHECK 0; SODIUM 137 MEQ/L (136-147); UREA NITROGEN (BUN) 36 mg/dL (9-23)
[2016-12-11 07:40] VITALS: BP 132/83
[2016-12-11 11:16] LABS: POINT-OF-CARE METER ID UU13113725
[2016-12-11 15:49] VITALS: BP 134/88
[2016-12-11 16:21] LABS: POINT-OF-CARE METER ID UU13113725
[2016-12-11 23:45] VITALS: BP 136/81
[2016-12-12 06:27] LABS: POINT-OF-CARE METER ID UU13113725
[2016-12-12 06:59] LABS: ANION GAP 11 MEQ/L (2-14); CHLORIDE 111 MEQ/L (99-109); GFR ESTIMATE (CALCULATED) 21 mL/min/; GLUCOSE 177 mg/dL (70-99); POTASSIUM 4.8 MEQ/L (3.7-5.4); SAMPLE HEMOLYSIS CHECK 0; SAMPLE ICTERIC CHECK 0; SAMPLE LIPEMIA CHECK 0; SODIUM 140 MEQ/L (136-147); UREA NITROGEN (BUN) 38 mg/dL (9-23)
[2016-12-12 07:15] VITALS: BP 149/92
[2016-12-12 11:02] LABS: POINT-OF-CARE METER ID UU13113725
[2016-12-12 15:05] VITALS: BP 138/88
[2016-12-12 16:21] LABS: POINT-OF-CARE METER ID UU13113725
[2016-12-12 21:18] LABS: POINT-OF-CARE METER ID UU13113725
[2016-12-13 00:06] VITALS: BP 148/90
[2016-12-13 05:45] LABS: HEMATOCRIT 32.9 % (38.0-50.0); MCH 29.8 PG (29.0-34.0); MCHC 31.6 G/DL (30.0-36.0); MCV 94.3 FL (86-99); MEAN PLAT.VOLUME 9.4 uM^3 (9.0-12.4); NRBC (%) 0.2 /100 WBC (0-0); PLATELET COUNT 269 K/uL (156-360); RBC DIS.WIDTH-CV 17.4 % (11.8-14.6); RBC DIS.WIDTH-SD 58.8 % (39-53); RED BLOOD COUNT 3.49 M/uL (4.00-5.50); WHITE BLOOD COUNT 10.7 K/uL (4.1-10.2)
[2016-12-13 05:54] LABS: POINT-OF-CARE METER ID UU13113725
[2016-12-13 06:41] LABS: ANION GAP 10 MEQ/L (2-14); CHLORIDE 111 MEQ/L (99-109); GFR ESTIMATE (CALCULATED) 21 mL/min/; GLUCOSE 194 mg/dL (70-99); POTASSIUM 4.8 MEQ/L (3.7-5.4); SAMPLE HEMOLYSIS CHECK 0; SAMPLE ICTERIC CHECK 0; SAMPLE LIPEMIA CHECK 0; SODIUM 141 MEQ/L (136-147); UREA NITROGEN (BUN) 37 mg/dL (9-23)
[2016-12-13 08:23] VITALS: BP 158/88
[2016-12-14 00:25] VITALS: BP 154/86
[2016-12-14 06:42] LABS: ANION GAP 10 MEQ/L (2-14); CHLORIDE 111 MEQ/L (99-109); GFR ESTIMATE (CALCULATED) 25 mL/min/; GLUCOSE 170 mg/dL (70-99); POTASSIUM 4.3 MEQ/L (3.7-5.4); SAMPLE HEMOLYSIS CHECK 0; SAMPLE ICTERIC CHECK 0; SAMPLE LIPEMIA CHECK 0; SODIUM 141 MEQ/L (136-147); UREA NITROGEN (BUN) 34 mg/dL (9-23)
[2016-12-14 15:27] LABS: POINT-OF-CARE METER ID UU13113725
[2016-12-14 15:42] VITALS: BP 157/93
[2016-12-14 19:44] LABS: ADD MIUA? YES; BILIRUBIN NEGATIVE; BLOOD MODERATE; COLOR AMBER ((YELLOW)); GLUCOSE (STRIP) 150; KETONES NEGATIVE; LEUKOCYTES LARGE; NITRITE NEGATIVE; PROTEIN (STRIP) 100; SPECIFIC GRAVITY 1.009 (1.000-1.030); UROBILINOGEN 0.2 MG/DL (0.2-1.0)
[2016-12-14 20:40] LABS: BACTERIA 3+ /HPF; EPITHELIAL CELLS 1+ /HPF; MUCUS 1+ /LPF; OTHER YEAST W/HYPHAE; RED BLOOD CELLS TNTC /HPF (0-5); UCUL ADDED? YES; WHITE BLOOD CELLS TNTC /HPF (0-5)
[2016-12-14 20:41] LABS: AMORPHOUS URATES CRYSTALS 1+; COARSE GRANULAR CASTS 0-5 /LPF
[2016-12-15 06:46] LABS: POINT-OF-CARE METER ID UU13113725
[2016-12-15 07:56] VITALS: BP 162/92
[2016-12-15 09:00] LABS: BASOPHIL COUNT 0.1 K/uL (0-0.1); EOSINOPHIL COUNT 0.4 K/uL (0-0.3); HEMATOCRIT 31.8 % (38.0-50.0); IMMATURE GRANULOCYTE (%) 0.7 % (0.0-0.7); IMMATURE GRANULOCYTE COUNT 0.1 K/uL; INSTRUMENT ABS NEUTROPHIL CT 8.6 K/uL; LYMPHOCYTE COUNT 1.2 K/uL (1.0-2.8); MCH 29.3 PG (29.0-34.0); MCHC 31.8 G/DL (30.0-36.0); MCV 92.2 FL (86-99); MEAN PLAT.VOLUME 9.8 uM^3 (9.0-12.4); MONOCYTE (%) 5.4 % (3-12); MONOCYTE COUNT 0.6 K/uL (0-0.8); NEUTROPHIL (%) 78.3 % (45-76); NEUTROPHIL COUNT 8.6 K/uL (1.8-6.4); PLATELET COUNT 223 K/uL (156-360); RBC DIS.WIDTH-CV 17.8 % (11.8-14.6); RBC DIS.WIDTH-SD 58.5 % (39-53); RED BLOOD COUNT 3.45 M/uL (4.00-5.50)
[2016-12-15 09:24] LABS: ANION GAP 11 MEQ/L (2-14); CHLORIDE 107 MEQ/L (99-109); GFR ESTIMATE (CALCULATED) 31 mL/min/; GLUCOSE 219 mg/dL (70-99); SAMPLE HEMOLYSIS CHECK 0; SAMPLE ICTERIC CHECK 0; SAMPLE LIPEMIA CHECK 0; SODIUM 140 MEQ/L (136-147); UREA NITROGEN (BUN) 31 mg/dL (9-23)
[2016-12-15 11:09] LABS: POINT-OF-CARE METER ID UU13113725
[2016-12-15 16:11] VITALS: BP 147/93
[2016-12-15 16:17] LABS: POINT-OF-CARE METER ID UU13113725
[2016-12-15 21:01] VITALS: BP 154/102
[2016-12-15 23:09] VITALS: BP 142/84
[2016-12-16 06:03] LABS: POINT-OF-CARE METER ID UU13113725
[2016-12-16 06:29] LABS: ANION GAP 8 MEQ/L (2-14); CHLORIDE 110 MEQ/L (99-109); GFR ESTIMATE (CALCULATED) 34 mL/min/; GLUCOSE 199 mg/dL (70-99); POTASSIUM 3.6 MEQ/L (3.7-5.4); SAMPLE HEMOLYSIS CHECK 0; SAMPLE ICTERIC CHECK 0; SAMPLE LIPEMIA CHECK 0; SODIUM 140 MEQ/L (136-147); UREA NITROGEN (BUN) 26 mg/dL (9-23)
[2016-12-16 07:47] VITALS: BP 137/87
[2016-12-16] MEDS ORDERED: ARANESP40 MCG/0.4 SC (08:20)
[2016-12-16] MEDS ORDERED: ERGOCALCIF50000 UNIT PO (08:21)
[2016-12-16] MEDS ORDERED: NOVOLOG PE100 UNITS/ SC (08:21)
[2016-12-16] MEDS ORDERED: LYRICA150 MG PO (08:22)
[2016-12-16] MEDS ORDERED: OXYCODONE HCL5 MG PO (08:22)
[2016-12-16 11:35] LABS: POINT-OF-CARE METER ID UU13113725
== END 2016-12-16 11:45 | DRG 727 ==
LOC: EME 11:27 → 5EAST 14:47 → EDOF 14:47 → 5EAST 17:37
PROVIDERS: Emergency Medicine; Family Medicine; Internal Medicine; Internal Medicine Nephrology
DX: B37.49 Other urogenital candidiasis (principal); N12 Tubulo-interstitial nephritis, not specified as acute or chronic; N17.0 Acute kidney failure with tubular necrosis; A41.9 Sepsis, unspecified organism; G93.41 Metabolic encephalopathy; K86.1 Other chronic pancreatitis; N18.3 Chronic kidney disease, stage 3 (moderate); B36.9 Superficial mycosis, unspecified; D63.1 Anemia in chronic kidney disease; E10.21 Type 1 diabetes mellitus with diabetic nephropathy; E10.649 Type 1 diabetes mellitus with hypoglycemia without coma; E10.42 Type 1 diabetes mellitus with diabetic polyneuropathy; E10.22 Type 1 diabetes mellitus with diabetic chronic kidney disease; I12.9 Hypertensive chronic kidney disease with stage 1 through stage 4 chronic kidney disease, or unspecified chronic kidney disease; E55.9 Vitamin D deficiency, unspecified; E78.5 Hyperlipidemia, unspecified; E87.1 Hypo-osmolality and hyponatremia; E87.2 Acidosis; F12.90 Cannabis use, unspecified, uncomplicated; F19.10 Other psychoactive substance abuse, uncomplicated; G25.3 Myoclonus; R79.89 Other specified abnormal findings of blood chemistry; G89.4 Chronic pain syndrome; H54.42 Blindness, left eye, normal vision right eye; J44.9 Chronic obstructive pulmonary disease, unspecified; K21.9 Gastro-esophageal reflux disease without esophagitis; K58.9 Irritable bowel syndrome, unspecified; L73.9 Follicular disorder, unspecified; M19.90 Unspecified osteoarthritis, unspecified site; R29.6 Repeated falls; R56.9 Unspecified convulsions; Z87.891 Personal history of nicotine dependence; Z82.5 Family history of asthma and other chronic lower respiratory diseases; Z82.49 Family history of ischemic heart disease and other diseases of the circulatory system; Z86.73 Personal history of transient ischemic attack (TIA), and cerebral infarction without residual deficits; Z87.01 Personal history of pneumonia (recurrent); Z87.11 Personal history of peptic ulcer disease; Z87.440 Personal history of urinary (tract) infections; M54.5 Low back pain; G89.29 Other chronic pain; M79.661 Pain in right lower leg; M79.89 Other specified soft tissue disorders; R47.1 Dysarthria and anarthria; R63.0 Anorexia; Z68.31 Body mass index [BMI] 31.0-31.9, adult; R33.9 Retention of urine, unspecified; J98.11 Atelectasis; E66.9 Obesity, unspecified; F33.9 Major depressive disorder, recurrent, unspecified
CPT/HCPCS: 70450; 70551; 71020; 76770; 80048; 80053; 80069; 80170; 81003; 82248; 82565; 82570; 82575; 82948; 83540; 83605; 84156; 84466; 84520; 84550; 84999; 85025; 85027; 87040; 87086; 87106; 92526 GN; 92610 GN; 93971; 95819; 97530 GO; 99202; 99281; 99285; J0692; J0744; J0881; J1580; J1815; J1940; J1956; J2405; J7030; J7050; P9047

== ENCOUNTER 2017-08-27 08:49 | Inpatient (IN) | payer OTHER ==
[~2017-08-27] VITALS: Ht 182.9 cm; Wt 103.4 kg
[~2017-08-27 08:49] MED LIST changes: +ARANESP40 MCG/0.4 SC; +VITAMIN D2000 UNI1 PO
[2017-08-27 10:14] LABS: INTER. NORMALIZED RATIO 1.7
[2017-08-27 10:15] LABS: CHLORIDE 90 mEq/L (99-109); POTASSIUM 2.7 mEq/L (3.7-5.4); SODIUM 122 mEq/L (136-147)
[2017-08-27 10:16] LABS: GLUCOSE 297 mg/dL (70-99)
[2017-08-27 10:20] LABS: CREATININE 3.1 mg/dL (0.6-1.3); GFR ESTIMATE (CALCULATED) 24 mL/min/ (58.99-99999)
[2017-08-27 10:21] LABS: UREA NITROGEN (BUN) 36 mg/dL (9-23)
[2017-08-27 10:24] LABS: HEMOGLOBIN 9.1 G/DL (12.5-16.6); MCH 31.3 PG (29.0-34.0); MCHC 37.9 G/DL (30.0-36.0); MCV 82.5 FL (86-99); PLATELET COUNT 437 K/uL (156-360); RBC DIS.WIDTH-CV 11.9 % (11.8-14.6); RBC DIS.WIDTH-SD 36.2 % (39-53); RED BLOOD COUNT 2.91 M/uL (4.00-5.50); WHITE BLOOD COUNT 22.9 K/uL (4.1-10.2)
[2017-08-27 11:42] LABS: BASOPHIL (%) 0.3 % (0-1); BASOPHIL COUNT 0.1 K/uL (0-0.1); EOSINOPHIL (%) 0.7 % (0-5); EOSINOPHIL COUNT 0.2 K/uL (0-0.3); IMMATURE GRANULOCYTE (%) 3.2 % (0.0-0.7); LYMPHOCYTE (%) 5.1 % (15-42); LYMPHOCYTE COUNT 1.2 K/uL (1.0-2.8); MONOCYTE (%) 4.3 % (3-12); NEUTROPHIL (%) 86.4 % (45-76); NEUTROPHIL COUNT 19.8 K/uL (1.8-6.4)
[2017-08-27] MEDS ORDERED: NOVOLIN,HU100 UNITS/ SC (11:45)
[2017-08-27] MEDS ORDERED: CEFADROXIL1 GM PO (11:47)
[2017-08-27] MEDS ORDERED: EFFEXOR75 MG PO (11:48)
[2017-08-27] MEDS ORDERED: VALSARTAN-HCTZ1 EAC4 PO (11:48)
[2017-08-27 13:56] LABS: CHLORIDE 92 mEq/L (99-109); POTASSIUM 2.7 mEq/L (3.7-5.4); SODIUM 123 mEq/L (136-147)
[2017-08-27 13:58] LABS: GLUCOSE 262 mg/dL (70-99)
[2017-08-27 14:01] LABS: GFR ESTIMATE (CALCULATED) 25 mL/min/ (58.99-99999)
[2017-08-27 14:02] LABS: UREA NITROGEN (BUN) 35 mg/dL (9-23)
[2017-08-27 14:14] LABS: HEMOGLOBIN A1c (GLYCOHEMOGLOB) 14.2 % (Below 5.7)
[2017-08-27 20:45] VITALS: BP 92/55
[2017-08-27 21:15] LABS: CHLORIDE 98 MEQ/L (99-109); CREATININE 2.9 MG/DL (0.6-1.3); GFR ESTIMATE (CALCULATED) 26 mL/min/ (58.99-99999); GLUCOSE 191 mg/dL (70-99); POTASSIUM 2.8 MEQ/L (3.7-5.4); SODIUM 123 MEQ/L (136-147); UREA NITROGEN (BUN) 34 mg/dL (9-23)
[2017-08-28] VITALS (9 sets, daily range): BP systolic 109–128; BP diastolic 58–74
[2017-08-28 05:48] LABS: CHLORIDE 100 mEq/L (99-109); SODIUM 128 mEq/L (136-147)
[2017-08-28 05:49] LABS: GLUCOSE 249 mg/dL (70-99)
[2017-08-28 05:50] LABS: HEMATOCRIT 24.8 % (38.0-50.0); MCH 30.9 PG (29.0-34.0); MCHC 36.3 G/DL (30.0-36.0); MCV 85.2 FL (86-99); PLATELET COUNT 474 K/uL (156-360); RBC DIS.WIDTH-CV 12.5 % (11.8-14.6); RBC DIS.WIDTH-SD 39.1 % (39-53); RED BLOOD COUNT 2.91 M/uL (4.00-5.50); WHITE BLOOD COUNT 24.6 K/uL (4.1-10.2)
[2017-08-28 05:53] LABS: CREATININE 3.3 mg/dL (0.6-1.3); GFR ESTIMATE (CALCULATED) 23 mL/min/ (58.99-99999)
[2017-08-28 05:54] LABS: UREA NITROGEN (BUN) 37 mg/dL (9-23)
[2017-08-28 06:12] LABS: POTASSIUM 3.5 mEq/L (3.7-5.4)
[2017-08-29 03:47] VITALS: BP 125/69
[2017-08-29 06:06] LABS: HEMATOCRIT 25.6 % (38.0-50.0); HEMOGLOBIN 9.2 G/DL (12.5-16.6); MCH 31.1 PG (29.0-34.0); MCHC 35.9 G/DL (30.0-36.0); MCV 86.5 FL (86-99); PLATELET COUNT 547 K/uL (156-360); RBC DIS.WIDTH-CV 12.9 % (11.8-14.6); RBC DIS.WIDTH-SD 40.7 % (39-53); RED BLOOD COUNT 2.96 M/uL (4.00-5.50); WHITE BLOOD COUNT 27.6 K/uL (4.1-10.2)
[2017-08-29 06:25] LABS: ALBUMIN 2.4 G/DL (3.2-4.8); ALKALINE PHOSPHATASE 361 IU/L (3-129); ALT (GPT) 38 IU/L (3-49); AST (GOT) 97 IU/L (2-34); CHLORIDE 98 MEQ/L (99-109); CREATININE 3.7 MG/DL (0.6-1.3); GFR ESTIMATE (CALCULATED) 20 mL/min/ (58.99-99999); GLUCOSE 260 mg/dL (70-99); POTASSIUM 3.3 MEQ/L (3.7-5.4); SODIUM 127 MEQ/L (136-147); TOTAL BILIRUBIN 0.5 MG/DL (0.0-1.0); TOTAL PROTEIN 6.9 G/DL (6.4-8.3); UREA NITROGEN (BUN) 41 mg/dL (9-23)
[2017-08-29 07:57] VITALS: BP 109/69
[2017-08-29 11:39] VITALS: BP 113/65
[2017-08-29 15:48] VITALS: BP 106/57
[2017-08-29 19:23] VITALS: BP 107/64
[2017-08-29 23:16] VITALS: BP 126/76
[2017-08-30 04:07] VITALS: BP 123/77
[2017-08-30 08:18] VITALS: BP 110/68
[2017-08-30 09:46] LABS: HEMATOCRIT 24.6 % (38.0-50.0); HEMOGLOBIN 8.3 G/DL (12.5-16.6); MCH 29.9 PG (29.0-34.0); MCHC 33.7 G/DL (30.0-36.0); MCV 88.5 FL (86-99); PLATELET COUNT 493 K/uL (156-360); RBC DIS.WIDTH-CV 13.4 % (11.8-14.6); RBC DIS.WIDTH-SD 43.6 % (39-53); RED BLOOD COUNT 2.78 M/uL (4.00-5.50); WHITE BLOOD COUNT 21.1 K/uL (4.1-10.2)
[2017-08-30 10:10] LABS: ALBUMIN 1.9 G/DL (3.2-4.8); ALKALINE PHOSPHATASE 466 IU/L (3-129); ALT (GPT) 38 IU/L (3-49); AST (GOT) 88 IU/L (2-34); CHLORIDE 105 MEQ/L (99-109); CREATININE 3.4 MG/DL (0.6-1.3); GFR ESTIMATE (CALCULATED) 22 mL/min/ (58.99-99999); GLUCOSE 120 mg/dL (70-99); POTASSIUM 4.1 MEQ/L (3.7-5.4); SODIUM 130 MEQ/L (136-147); TOTAL BILIRUBIN 0.6 MG/DL (0.0-1.0); TOTAL PROTEIN 5.8 G/DL (6.4-8.3); UREA NITROGEN (BUN) 44 mg/dL (9-23)
[2017-08-30 12:56] VITALS: BP 108/64
[2017-08-30 16:33] VITALS: BP 120/72
[2017-08-30 20:28] VITALS: BP 121/77
[2017-08-31] VITALS (7 sets, daily range): BP systolic 117–152; BP diastolic 68–90
[2017-08-31 05:53] LABS: HEMATOCRIT 22.8 % (38.0-50.0); HEMOGLOBIN 7.9 G/DL (12.5-16.6); MCH 30.5 PG (29.0-34.0); MCHC 34.6 G/DL (30.0-36.0); PLATELET COUNT 493 K/uL (156-360); RBC DIS.WIDTH-CV 13.5 % (11.8-14.6); RBC DIS.WIDTH-SD 43.8 % (39-53); RED BLOOD COUNT 2.59 M/uL (4.00-5.50); WHITE BLOOD COUNT 21.3 K/uL (4.1-10.2)
[2017-09-01] VITALS (14 sets, daily range): BP systolic 114–158; BP diastolic 74–98
[2017-09-01 05:59] LABS: CHLORIDE 110 MEQ/L (99-109); GFR ESTIMATE (CALCULATED) 40 mL/min/ (58.99-99999); GLUCOSE 101 mg/dL (70-99); HEMATOCRIT 20.3 % (38.0-50.0); MCH 29.6 PG (29.0-34.0); MCHC 33.5 G/DL (30.0-36.0); MCV 88.3 FL (86-99); PLATELET COUNT 464 K/uL (156-360); POTASSIUM 3.9 MEQ/L (3.7-5.4); RBC DIS.WIDTH-CV 13.7 % (11.8-14.6); RBC DIS.WIDTH-SD 44.1 % (39-53); SODIUM 134 MEQ/L (136-147); UREA NITROGEN (BUN) 30 mg/dL (9-23); WHITE BLOOD COUNT 14.5 K/uL (4.1-10.2)
[2017-09-01 06:05] LABS: HEMOGLOBIN 6.8 G/DL (12.5-16.6)
[2017-09-02] VITALS (7 sets, daily range): BP systolic 138–160; BP diastolic 82–97
[2017-09-02 07:51] LABS: HEMATOCRIT 26.7 % (38.0-50.0); MCH 30.4 PG (29.0-34.0); MCHC 34.1 G/DL (30.0-36.0); MCV 89.3 FL (86-99); PLATELET COUNT 382 K/uL (156-360); RBC DIS.WIDTH-CV 13.8 % (11.8-14.6); RBC DIS.WIDTH-SD 45.1 % (39-53); WHITE BLOOD COUNT 12.4 K/uL (4.1-10.2)
[2017-09-02 07:55] LABS: HEMOGLOBIN 9.1 G/DL (12.5-16.6); RED BLOOD COUNT 2.99 M/uL (4.00-5.50)
[2017-09-03 03:05] VITALS: BP 153/84
[2017-09-03 07:26] VITALS: BP 150/91
[2017-09-03 11:15] VITALS: BP 157/89
[2017-09-03 16:12] VITALS: BP 148/100
[2017-09-03 19:43] VITALS: BP 136/90
[2017-09-04 00:20] VITALS: BP 148/91
[2017-09-04 03:47] VITALS: BP 148/87
[2017-09-04 08:14] VITALS: BP 143/86
[2017-09-04 11:59] VITALS: BP 138/86
[2017-09-04 16:30] VITALS: BP 139/91
[2017-09-04 19:29] VITALS: BP 150/81
[2017-09-05 01:43] VITALS: BP 160/87
[2017-09-05 04:34] VITALS: BP 158/86
[2017-09-05 07:50] VITALS: BP 143/93
[2017-09-05 11:26] VITALS: BP 157/70
[2017-09-05] MEDS ORDERED: LEVEMIR100 UNIT/2 SC (15:14)
[2017-09-05] MEDS ORDERED: NOVOLOG 10100 UNITS/ SC (15:14)
[2017-09-05] MEDS ORDERED: OXYCODONE-APAP1 EACH PO (15:14)
[2017-09-05] MEDS ORDERED: TYLENOL REGULA325 MG PO (15:14)
[2017-09-05] MEDS ORDERED: DUONEB 2.5-0.5 M3 ML AEROSOL (15:14)
[2017-09-05] MEDS ORDERED: METHYLPHENIDATE5 MG PO (15:14)
[2017-09-05] MEDS ORDERED: EFFEXOR75 MG PO (15:14)
[2017-09-05] MEDS ORDERED: VALSARTAN160 MG PO (15:14)
[2017-09-05] MEDS ORDERED: FERROUS SULFAT325 MG PO (15:14)
[2017-09-05 16:03] VITALS: BP 138/80
[2017-09-06] MEDS ORDERED: NOVOLOG 10100 UNITS/ SC (16:29)
[2017-09-07 19:47] LABS: GAD-65 AUTOANTIBODIES+ <5 IU/mL (<5)
[2017-09-08 23:39] LABS: INSULIN ANTIBODIES 0.4 U/mL (<0.4)
== END 2017-09-05 17:16 | DRG 239 ==
LOC: EME 08:49 → 4EAST 11:24 → 3EAST 11:24 → EDOF 11:24 → ENRESERV 11:24 → 4EAST 20:33 → CANRESERV 08-28 05:57 → ENRESERV 08-28 05:57 → 3EAST 08-28 17:02
PROVIDERS: Emergency Medicine; Health Educator; Internal Medicine; Surgery
DX: E10.52 Type 1 diabetes mellitus with diabetic peripheral angiopathy with gangrene (principal); A48.0 Gas gangrene; E10.621 Type 1 diabetes mellitus with foot ulcer; L97.429 Non-pressure chronic ulcer of left heel and midfoot with unspecified severity; A41.9 Sepsis, unspecified organism; L03.116 Cellulitis of left lower limb; B95.1 Streptococcus, group B, as the cause of diseases classified elsewhere; B96.20 Unspecified Escherichia coli [E. coli] as the cause of diseases classified elsewhere; E10.649 Type 1 diabetes mellitus with hypoglycemia without coma; N17.9 Acute kidney failure, unspecified; E87.1 Hypo-osmolality and hyponatremia; E86.0 Dehydration; E87.6 Hypokalemia; E10.65 Type 1 diabetes mellitus with hyperglycemia; I12.9 Hypertensive chronic kidney disease with stage 1 through stage 4 chronic kidney disease, or unspecified chronic kidney disease; E10.21 Type 1 diabetes mellitus with diabetic nephropathy; E10.22 Type 1 diabetes mellitus with diabetic chronic kidney disease; N18.3 Chronic kidney disease, stage 3 (moderate); D63.1 Anemia in chronic kidney disease; E10.319 Type 1 diabetes mellitus with unspecified diabetic retinopathy without macular edema; E10.42 Type 1 diabetes mellitus with diabetic polyneuropathy; K21.9 Gastro-esophageal reflux disease without esophagitis; F32.9 Major depressive disorder, single episode, unspecified; G89.4 Chronic pain syndrome; H54.3 Unqualified visual loss, both eyes; R29.6 Repeated falls; E66.9 Obesity, unspecified; F41.9 Anxiety disorder, unspecified; Z79.4 Long term (current) use of insulin; Z88.0 Allergy status to penicillin; Z88.5 Allergy status to narcotic agent; Z88.2 Allergy status to sulfonamides; Z87.891 Personal history of nicotine dependence; Z68.31 Body mass index [BMI] 31.0-31.9, adult; Z86.14 Personal history of Methicillin resistant Staphylococcus aureus infection; Z86.73 Personal history of transient ischemic attack (TIA), and cerebral infarction without residual deficits; Z91.14 Patient's other noncompliance with medication regimen; Z91.5 Personal history of self-harm
CPT/HCPCS: 71045; 73630; 74022; 80048; 80048 91; 80053; 82948; 83036; 83605; 83735; 84681; 85025; 85027; 85610; 86337 90; 86341 90; 86850; 86900; 86901; 86920; 87040; 87070; 87075; 87076; 87077; 87116; 87185; 87186; 87205; 87206; 87641; 88305; 88307; 93005; 99202; 99281; 99285; A6260; C1753; J0131; J0360; J0690; J0692; J0696; J1170; J1650; J1815; J1885; J2250; J2405; J2765; J3010; J3370; J3480; J7030; J7120; P9016; S0020; S0030

== ENCOUNTER 2017-09-06 13:39 | Inpatient (IN) | payer OTHER ==
[~2017-09-06] VITALS: Ht 182.9 cm; Wt 98.9 kg
[2017-09-06] VITALS (11 sets, daily range): BP systolic 144–172; BP diastolic 80–110
[~2017-09-06 13:39] MED LIST changes: +CEFADROXIL1 GM PO; +FERROUS SULFAT325 MG PO; +LEVEMIR100 UNIT/2 SC; +METHYLPHENIDATE5 MG PO; +NOVOLOG 10100 UNITS/ SC; +OXYCODONE-APAP1 EACH PO
[2017-09-06 14:47] LABS: HEMATOCRIT 20.8 % (38.0-50.0); MCH 30.7 PG (29.0-34.0); MCHC 33.7 G/DL (30.0-36.0); MCV 91.2 FL (86-99); PLATELET COUNT 291 K/uL (156-360); RBC DIS.WIDTH-CV 14.5 % (11.8-14.6); RBC DIS.WIDTH-SD 47.3 % (39-53); WHITE BLOOD COUNT 16.8 K/uL (4.1-10.2)
[2017-09-06 14:48] LABS: RED BLOOD COUNT 2.28 M/uL (4.00-5.50)
[2017-09-06 14:51] LABS: CHLORIDE 106 mEq/L (99-109); POTASSIUM 4.6 mEq/L (3.7-5.4); SODIUM 137 mEq/L (136-147)
[2017-09-06 14:53] LABS: GLUCOSE 125 mg/dL (70-99)
[2017-09-06 14:57] LABS: GFR ESTIMATE (CALCULATED) > 59 mL/min/ (58.99-99999)
[2017-09-06 14:58] LABS: UREA NITROGEN (BUN) 15 mg/dL (9-23)
[2017-09-06 15:01] LABS: CREATININE 1.1 mg/dL (0.6-1.3)
[2017-09-06] MEDS ORDERED: NOVOLOG 10100 UNITS/ SC (16:29)
[2017-09-07 03:54] VITALS: BP 155/95
[2017-09-07 06:57] LABS: HEMATOCRIT 27.4 % (38.0-50.0); MCH 29.7 PG (29.0-34.0); MCHC 33.6 G/DL (30.0-36.0); MCV 88.4 FL (86-99); PLATELET COUNT 272 K/uL (156-360); RBC DIS.WIDTH-CV 15.9 % (11.8-14.6); RBC DIS.WIDTH-SD 50.1 % (39-53); WHITE BLOOD COUNT 18.3 K/uL (4.1-10.2)
[2017-09-07 06:58] LABS: HEMOGLOBIN 9.2 G/DL (12.5-16.6)
[2017-09-07 07:19] VITALS: BP 157/87
[2017-09-07 07:44] LABS: CHLORIDE 108 MEQ/L (99-109); GFR ESTIMATE (CALCULATED) > 59 mL/min/ (58.99-99999); GLUCOSE 127 mg/dL (70-99); POTASSIUM 4.5 MEQ/L (3.7-5.4); SODIUM 138 MEQ/L (136-147); UREA NITROGEN (BUN) 12 mg/dL (9-23)
[2017-09-07 11:45] VITALS: BP 171/106
[2017-09-07 11:45] LABS: PTT 45.4 SEC (25-37)
[2017-09-07 11:53] LABS: INTER. NORMALIZED RATIO 3.2
[2017-09-07 15:55] VITALS: BP 140/93
[2017-09-07 23:17] VITALS: BP 162/100
[2017-09-08] VITALS (7 sets, daily range): BP systolic 133–177; BP diastolic 84–114
[2017-09-08 06:52] LABS: HEMATOCRIT 25.1 % (38.0-50.0); HEMOGLOBIN 8.2 G/DL (12.5-16.6); MCH 28.8 PG (29.0-34.0); MCHC 32.7 G/DL (30.0-36.0); MCV 88.1 FL (86-99); PLATELET COUNT 290 K/uL (156-360); RBC DIS.WIDTH-CV 16.1 % (11.8-14.6); RBC DIS.WIDTH-SD 50.3 % (39-53); RED BLOOD COUNT 2.85 M/uL (4.00-5.50)
[2017-09-08 16:30] LABS: INTER. NORMALIZED RATIO 1.5
[2017-09-09] VITALS (21 sets, daily range): BP systolic 136–181; BP diastolic 73–109
[2017-09-09 06:29] LABS: INTER. NORMALIZED RATIO 1.3
[2017-09-09 06:32] LABS: PTT 31.9 SEC (25-37)
[2017-09-09 06:37] LABS: HEMATOCRIT 20.8 % (38.0-50.0); MCH 29.1 PG (29.0-34.0); MCHC 32.2 G/DL (30.0-36.0); MCV 90.4 FL (86-99); PLATELET COUNT 264 K/uL (156-360); RBC DIS.WIDTH-CV 16.6 % (11.8-14.6); RBC DIS.WIDTH-SD 53.6 % (39-53); WHITE BLOOD COUNT 13.8 K/uL (4.1-10.2)
[2017-09-09 06:41] LABS: HEMOGLOBIN 6.7 G/DL (12.5-16.6)
[2017-09-10] VITALS (9 sets, daily range): BP systolic 141–179; BP diastolic 83–111
[2017-09-10 09:37] LABS: HEMATOCRIT 23.6 % (38.0-50.0); HEMOGLOBIN 7.7 G/DL (12.5-16.6); IMM.RETIC FRACTION 12.9 % (3-19); MCH 29.4 PG (29.0-34.0); MCHC 32.6 G/DL (30.0-36.0); MCV 90.1 FL (86-99); PLATELET COUNT 307 K/uL (156-360); RBC DIS.WIDTH-CV 16.7 % (11.8-14.6); RBC DIS.WIDTH-SD 54.1 % (39-53); RED BLOOD COUNT 2.62 M/uL (4.00-5.50); RETIC HGB EQUIVALENT 34.8 (28-36); RETICULOCYTE COUNT 3.5 % (0.5-1.8); WHITE BLOOD COUNT 11.1 K/uL (4.1-10.2)
[2017-09-10 09:47] LABS: INTER. NORMALIZED RATIO 1.2
[2017-09-10 09:49] LABS: PTT 30.1 SEC (25-37)
[2017-09-10 10:03] LABS: CHLORIDE 102 MEQ/L (99-109); CREATININE 1.1 MG/DL (0.6-1.3); GFR ESTIMATE (CALCULATED) > 59 mL/min/ (58.99-99999); GLUCOSE 182 mg/dL (70-99); POTASSIUM 3.9 MEQ/L (3.7-5.4); SODIUM 135 MEQ/L (136-147); UREA NITROGEN (BUN) 13 mg/dL (9-23)
[2017-09-10] MEDS ORDERED: OXAYDO5 MG PO (15:00)
[2017-09-10 17:19] LABS: HEMATOCRIT 26.1 % (38.0-50.0); HEMOGLOBIN 8.6 G/DL (12.5-16.6); MCV 90.6 FL (86-99)
[2017-09-11] VITALS: BP 176/99
[2017-09-11 04:27] VITALS: BP 141/81
[2017-09-11 08:00] VITALS: BP 153/96
[2017-09-11 15:15] VITALS: BP 163/90
[2017-09-11 18:00] VITALS: BP 168/103
[2017-09-11 19:42] VITALS: BP 168/92
[2017-09-12] VITALS (7 sets, daily range): BP systolic 130–188; BP diastolic 79–98
[2017-09-12 06:37] LABS: C DIFF TOXIN POSITIVE (NEGATIVE)
[2017-09-12 09:42] LABS: HEMATOCRIT 26.1 % (38.0-50.0); HEMOGLOBIN 8.6 G/DL (12.5-16.6); MCV 90.9 FL (86-99)
[2017-09-13 08:30] VITALS: BP 133/84
[2017-09-13] MEDS ORDERED: VANCOCIN HCL125 MG PO (14:21)
[2017-09-13] MEDS ORDERED: TOPROL XL50 MG PO (14:21)
== END 2017-09-13 15:54 | DRG 516 ==
LOC: DELPENDDIS → EME 13:39 → ENRESERV 16:41 → 5EAST 16:57 → EDOF 16:57 → ENRESERV 17:20 → 5EAST 19:33 → ENPENDDIS 09-11 11:30 → 5EAST 09-12 09:02
PROVIDERS: Emergency Medicine; Physician Assistant Surgical; Surgery
PROC: 30233N1 Transfusion of Nonautologous Red Blood Cells into Peripheral Vein, Percutaneous Approach (ICD-10-PCS; principal; 2017-09-06)
PROC: 0HBLXZZ Excision of Left Lower Leg Skin, External Approach (ICD-10-PCS; 2017-09-08)
PROC: 0Y3J0ZZ Control Bleeding in Left Lower Leg, Open Approach (ICD-10-PCS; 2017-09-08)
PROC: 30233K1 Transfusion of Nonautologous Frozen Plasma into Peripheral Vein, Percutaneous Approach (ICD-10-PCS; 2017-09-08)
DX: T87.89 Other complications of amputation stump (principal); A04.72 Enterocolitis due to Clostridium difficile, not specified as recurrent; T87.54 Necrosis of amputation stump, left lower extremity; Y83.5 Amputation of limb(s) as the cause of abnormal reaction of the patient, or of later complication, without mention of misadventure at the time of the procedure; I12.9 Hypertensive chronic kidney disease with stage 1 through stage 4 chronic kidney disease, or unspecified chronic kidney disease; Z89.512 Acquired absence of left leg below knee; I96 Gangrene, not elsewhere classified; N18.9 Chronic kidney disease, unspecified; D68.9 Coagulation defect, unspecified; H54.40 Blindness, one eye, unspecified eye; F32.9 Major depressive disorder, single episode, unspecified; K21.9 Gastro-esophageal reflux disease without esophagitis; Z87.891 Personal history of nicotine dependence; G89.4 Chronic pain syndrome; Z91.14 Patient's other noncompliance with medication regimen; D64.9 Anemia, unspecified; Z79.4 Long term (current) use of insulin; E10.22 Type 1 diabetes mellitus with diabetic chronic kidney disease; E10.319 Type 1 diabetes mellitus with unspecified diabetic retinopathy without macular edema; E10.21 Type 1 diabetes mellitus with diabetic nephropathy
CPT/HCPCS: 80048; 82948; 85014; 85018; 85027; 85046; 85610; 85730; 86850; 86900; 86901; 86920; 87493; 99281; 99285; J0330; J0360; J1650; J1815; J1940; J2250; J2405; J3010; J3430; J7030; J7050; J7120; P9016; P9017; S0028